=== PATIENT | female | born 1990 ===

== ENCOUNTER 2018-07-07 18:54 | Emergency (ER) | payer MEDICAID ==
[~2018-07-07] VITALS: Ht 167.6 cm; Wt 60.9 kg
[2018-07-07 18:55] VITALS: Ht 167.6 cm; Wt 60.9 kg
[2018-07-07] MEDS ORDERED: BUSPAR10 MG PO (19:29)
[2018-07-07 19:58] VITALS: BP 129/88
== END 2018-07-07 20:01 | disposition home or self-care (01) ==
LOC: D.ER 18:54
DX: R07.89 Other chest pain (principal); F41.9 Anxiety disorder, unspecified; F17.200 Nicotine dependence, unspecified, uncomplicated